=== PATIENT | female | born 1980 | race Caucasian/White ===

== ENCOUNTER 2016-09-27 12:55 | Inpatient (IN) | payer MEDICARE, MEDICAID ==
[2016-09-27 15:27] LABS: Hematocrit 35 % (35-47); Hemoglobin 11.9 g/dl (12.0-16.0); Mean Corpuscular HGB Conc 34 g/dl (31-36); Mean Corpuscular Hemoglobin 29 pg (27-31); Mean Corpuscular Volume 85 fL (80-97); Mean Platelet Volume 8 um3 (7.4-10.4); Red Blood Count 4.15 10^6/ul (4.0-5.4); Red Cell Distribution Width 15 % (10.5-15); White Blood Count 10.3 10^3/ul (3.5-10.8)
[2016-09-27 15:29] LABS: Urine Bilirubin Negative (Negative); Urine Glucose Negative (Negative); Urine Nitrite Negative (Negative)
[2016-09-27 15:41] LABS: Benzodiazepine Urine Screen None Detected (None Detect)
[2016-09-27 15:42] LABS: ALT 12 U/L (7-52); AST 15 U/L (13-39); Albumin 3.9 g/dL (3.2-5.2); Alkaline Phosphatase 58 U/L (34-104); Blood Urea Nitrogen 12 mg/dL (6-24); CO2 Carbon Dioxide 25 mmol/L (22-32); Calcium 8.2 mg/dL (8.6-10.3); Chloride 87 mmol/L (101-111); EGFR African American 105.6 (>60); EGFR Non-African American 82.1 (>60); Glucose 90 mg/dL (70-100); Potassium 3.9 mmol/L (3.5-5.0); Total Protein 6.9 g/dL (6.4-8.9)
[2016-09-27 15:43] LABS: Anion Gap 5 mmol/L (2-11); Sodium 117 mmol/L (133-145)
[2016-09-27] MEDS ORDERED: NS 0.9% 1000 ML* 1,000 ML IV SCH ×2 (16:00→18:00)
[2016-09-27 16:31] LABS: Acetaminophen < 15 mcg/mL; Alcohol < 10 mg/dL (<10); Salicylate < 2.50 mg/dL (<30)
[2016-09-27 16:40] LABS: TSH (Thyroid Stimulating Horm) 1.47 mcIU/mL (0.34-5.60)
[2016-09-27 17:08] LABS: BUN/Creatinine Ratio 17.8 (8-20); Calcium 7.8 mg/dL (8.6-10.3); EGFR African American 117.4 (>60); EGFR Non-African American 91.3 (>60); Potassium 3.9 mmol/L (3.5-5.0)
[2016-09-27] MEDS ORDERED: Zolpidem TAB* 10 MG PO PRN (17:55)
--- NOTE | 2016-09-27 18:30 | ED ---
Han Otero Billy, scribed for Segundo Chandler MD on 09/27/16 at 1345 . Psychiatric Complaint - HPI Summary HPI Summary: Patient is a 35 year-old female coming to [facility] for evaluation of depression and OD. Patient states that she took all of her daily medications at once this morning at 0830, citing vague thoughts of self-harm, stating that she "didn't realize it would affect her so much." The list of medications includes Tegretol , Wellbutrin, Neurontin, and Adderall. She feels dizzy and fatigued at this time. Patient saw her counselor 5 days ago and was told that she needed to be admitted to a [facility]. - History Of Current Complaint Chief Complaint: EDMentalHealth Time Seen by Provider: 09/27/16 13:06 Accompanied By: Hx Obtained From: Patient Onset/Duration: Gradual Onset, Lasting Hours Timing: Constant Severity Initially: Moderate Severity Currently: Moderate Character: Depressed Aggravating Factor(s): Medication Non-compliance Alleviating Factor(s): Counseling Related History: Positive For: Prior Psychiatric Issues - Allergies/Home Medications Allergies/Adverse Reactions: Allergies Allergy/AdvReac Type Severity Reaction Status Date / Time No Known Allergies Allergy Verified 09/27/16 13:57 PMH/Surg Hx/FS Hx/Imm Hx Endocrine/Hematology History: Denies: Hx Diabetes Cardiovascular History: Denies: Hx Congenital Heart Disease, Hx Congestive Heart Failure, Hx Hypertension Psychiatric History: Reports: Hx Anxiety, Hx Depression, Hx Post Traumatic Stress Disorder, Hx Schizophrenia, Hx Bipolar Disorder Infectious Disease History: Denies: Traveled Outside the [place] in Last 30 Days - Family History Known Family History: Positive: Other - Lung cancer - Social History Alcohol Use: None Hx Substance Use: Yes Substance Use Type: Reports: Marijuana Hx Tobacco Use: Yes Smoking Status (MU): Current Every Day Smoker Review of Systems Positive: Fatigue. Negative: Fever Negative: Chest Pain Negative: Shortness Of Breath Negative: Abdominal Pain Negative: dysuria, hematuria Neurological: Other - dizzy Positive: Depressed All Other Systems Reviewed And Are Negative: Yes Physical Exam Triage Information Reviewed: Yes Vital Signs On Initial Exam: Initial Vitals Temp Pulse Resp BP Pulse Ox 98 F 90 16 153/98 100 09/27/16 13:00 09/27/16 13:00 09/27/16 13:00 09/27/16 13:00 09/27/16 13:00 Vital Signs Reviewed: Yes Appearance: Positive: Well-Appearing, No Pain Distress Skin: Positive: Warm, Skin Color Reflects Adequate Perfusion, Dry Head/Face: Positive: Normal Head/Face Inspection Eyes: Positive: EOMI, GEOVANY ENT: Positive: Normal ENT inspection Neck: Positive: Supple, Nontender Respiratory/Lung Sounds: Positive: Clear to Auscultation, Breath Sounds Present Cardiovascular: Positive: RRR Abdomen Description: Positive: Nontender, Soft Musculoskeletal: Positive: Normal, Strength/ROM Intact Neurological: Positive: Normal, Sensory/Motor Intact, Alert, Oriented to Person Place, Time Psychiatric: Positive: Other - Flat affect Diagnostics - Vital Signs Vital Signs Temp Pulse Resp BP Pulse Ox 09/27/16 13:00 98 F 90 16 153/98 100 - Laboratory Lab Results: Lab Results 09/27/16 09/27/16 09/27/16 Range/Units 15:20 15:20 15:20 WBC 10.3 (3.5-10.8) 10^3/ul RBC 4.15 (4.0-5.4) 10^6/ul Hgb 11.9 L (12.0-16.0) g/dl Hct 35 (35-47) % MCV 85 (80-97) fL MCH 29 (27-31) pg MCHC 34 (31-36) g/dl RDW 15 (10.5-15) % Plt Count 250 (150-450) 10^3/ul MPV 8 (7.4-10.4) um3 Neut % (Auto) 74.0 (38-83) % Lymph % (Auto) 19.9 L (25-47) % [place] % (Auto) 5.2 (1-9) % Eos % (Auto) 0.4 (0-6) % Baso % (Auto) 0.5 (0-2) % Absolute Neuts (auto) 7.7 (1.5-7.7) 10^3/ul Absolute Lymphs (auto) 2.1 (1.0-4.8) 10^3/ul Absolute Monos (auto) 0.5 (0-0.8) 10^3/ul Absolute Eos (auto) 0 (0-0.6) 10^3/ul Absolute Basos (auto) 0 (0-0.2) 10^3/ul Absolute Nucleated RBC 0 10^3/ul Nucleated RBC % 0 Sodium 117 L* (133-145) mmol/L Potassium 3.9 (3.5-5.0) mmol/L Chloride 87 L (101-111) mmol/L Carbon Dioxide 25 (22-32) mmol/L Anion Gap 5 (2-11) mmol/L BUN 12 (6-24) mg/dL Creatinine 0.80 (0.51-0.95) mg/dL Est GFR ( Amer) 105.6 (>60) Est GFR (Non-Af Amer) 82.1 (>60) BUN/Creatinine Ratio 15.0 (8-20) Glucose 90 (70-100) mg/dL Calcium 8.2 L (8.6-10.3) mg/dL Total Bilirubin 0.30 (0.2-1.0) mg/dL AST 15 (13-39) U/L ALT 12 (7-52) U/L Alkaline Phosphatase 58 (34-104) U/L Total Protein 6.9 (6.4-8.9) g/dL Albumin 3.9 (3.2-5.2) g/dL Globulin 3.0 (2-4) g/dL Albumin/Globulin Ratio 1.3 (1-3) TSH 1.47 (0.34-5.60) mcIU/mL Beta HCG, Quant 0.95 mIU/mL Urine Color Yellow Urine Appearance Cloudy Urine pH 6.0 (5-9) Ur Specific [place] 1.023 (1.010-1.030) Urine Protein Negative (Negative) Urine Ketones Negative (Negative) Urine Blood Negative (Negative) Urine Nitrate Negative (Negative) Urine Bilirubin Negative (Negative) Urine Urobilinogen Negative (Negative) Ur Leukocyte Esterase Negative (Negative) Urine Glucose Negative (Negative) Urine Ascorbic Acid * H (Negative) Salicylates < 2.50 (<30) mg/dL Urine Opiates Screen (None Detect) Acetaminophen < 15 mcg/mL Ur Barbiturates Screen (None Detect) Ur Phencyclidine Scrn (None Detect) Ur Amphetamines Screen (None Detect) U Benzodiazepines Scrn (None Detect) Urine Cocaine Screen (None Detect) U Cannabinoids Screen (None Detect) Serum Alcohol < 10 (<10) mg/dL 09/27/16 09/27/16 Range/Units 15:20 16:20 WBC (3.5-10.8) 10^3/ul RBC (4.0-5.4) 10^6/ul Hgb (12.0-16.0) g/dl Hct (35-47) % MCV (80-97) fL MCH (27-31) pg MCHC (31-36) g/dl RDW (10.5-15) % Plt Count (150-450) 10^3/ul MPV (7.4-10.4) um3 Neut % (Auto) (38-83) % Lymph % (Auto) (25-47) % [place] % (Auto) (1-9) % Eos % (Auto) (0-6) % Baso % (Auto) (0-2) % Absolute Neuts (auto) (1.5-7.7) 10^3/ul Absolute Lymphs (auto) (1.0-4.8) 10^3/ul Absolute Monos (auto) (0-0.8) 10^3/ul Absolute Eos (auto) (0-0.6) 10^3/ul Absolute Basos (auto) (0-0.2) 10^3/ul Absolute Nucleated RBC 10^3/ul Nucleated RBC % Sodium 117 L* (133-145) mmol/L Potassium 3.9 (3.5-5.0) mmol/L Chloride 89 L (101-111) mmol/L Carbon Dioxide 23 (22-32) mmol/L Anion Gap 5 (2-11) mmol/L BUN 13 (6-24) mg/dL Creatinine 0.73 (0.51-0.95) mg/dL Est GFR ( Amer) 117.4 (>60) Est GFR (Non-Af Amer) 91.3 (>60) BUN/Creatinine Ratio 17.8 (8-20) Glucose 93 (70-100) mg/dL Calcium 7.8 L (8.6-10.3) mg/dL Total Bilirubin (0.2-1.0) mg/dL AST (13-39) U/L ALT (7-52) U/L Alkaline Phosphatase (34-104) U/L Total Protein (6.4-8.9) g/dL Albumin (3.2-5.2) g/dL Globulin (2-4) g/dL Albumin/Globulin Ratio (1-3) TSH (0.34-5.60) mcIU/mL Beta HCG, Quant mIU/mL Urine Color Urine Appearance Urine pH (5-9) Ur Specific [place] (1.010-1.030) Urine Protein (Negative) Urine Ketones (Negative) Urine Blood (Negative) Urine Nitrate (Negative) Urine Bilirubin (Negative) Urine Urobilinogen (Negative) Ur Leukocyte Esterase (Negative) Urine Glucose (Negative) Urine Ascorbic Acid (Negative) Salicylates (<30) mg/dL Urine Opiates Screen None detected (None Detect) Acetaminophen mcg/mL Ur Barbiturates Screen None detected (None Detect) Ur Phencyclidine Scrn None detected (None Detect) Ur Amphetamines Screen Presumptive positive H (None Detect) U Benzodiazepines Scrn None detected (None Detect) Urine Cocaine Screen None detected (None Detect) U Cannabinoids Screen Presumptive positive H (None Detect) Serum Alcohol (<10) mg/dL Result Diagrams: 09/27/16 15:20 09/27/16 16:20 Lab Statement: Any lab studies that have been ordered have been reviewed, and results considered in the medical decision making process. - EKG 1315 Cardiac Rate: NL - 86 bpm EKG Rhythm: Sinus Rhythm ST Segment: Normal Ectopy: None EKG Interpretation: [place] 179 and QTc 454 Course/Dx - Course Course Of Treatment: NO CRITICAL CARE TIME Assessment/Plan: ADMIT HOSPITALIST STABLE - Differential Dx/Clinical Impression Provider Diagnosis: Overdose, Hyponatremia, Mental health problem - Physician Notifications Discussed Care Of Patient With: Dr. Ferrara (hospitalist) at 1545: accepts admission. Discharge - Discharge Plan Condition: Stable Disposition: ADMITTED TO [facility] documentation as recorded by the Han francisco Billy accurately reflects the service I personally performed and the decisions made by me, Segundo Chandler MD.
[2016-09-27] MEDS: Acetaminophen TAB* 325 MG PO PRN (19:52)
[2016-09-27] MEDS: Nicotine PATCH 21 MG/24 HR* PATCH TRANSDERM SCH (19:52)
[2016-09-27] MEDS ORDERED: QUEtiapine TAB* 100 MG PO SCH (21:00)
[2016-09-27] MEDS ORDERED: Nicotine Patch Removal NOTE PATCH OFF SCH (21:00)
[2016-09-27] MEDS ORDERED: Melatonin (NF) ** ENTER STRENGTH IN LABEL DIRECTIONS PO SCH (21:00)
[2016-09-27 21:04] LABS: BUN/Creatinine Ratio 14.5 (8-20); Calcium 7.6 mg/dL (8.6-10.3); EGFR African American 101.2 (>60); EGFR Non-African American 78.7 (>60); Potassium 3.7 mmol/L (3.5-5.0)
--- NOTE | 2016-09-27 21:20 | HP ---
HISTORY AND PHYSICAL: DATE OF ADMISSION: 09/27/16 CHIEF COMPLAINT: Dizziness and vision changes. HISTORY OF PRESENT ILLNESS: Ms. Blount is a 35-year-old female with past medical history of bipolar disorder, borderline personality disorder, PTSD, schizophrenia, GERD, hypothyroidism, who presented to the hospital after she became dizzy and had some vision changes after she "took all her day medicine." The patient initially stated she was going to an auction that would last all day, so she wanted to take all of her medications in the morning, so she would not have to bring her pill box with her; however, on further interrogation, the patient states she took her Abilify, Wellbutrin, Neurontin, Tegretol in increased doses in order to get a buzz. She took an extra 200 mg of Tegretol for a total of 1000 mg. She states that she took these medications around 8 or 8:30 and about a half hour later, she began to feel dizzy, had some vision changes, and felt that her eyes were crossed. When asked to specify, she says she has not had a double vision; however, she felt like when she closed her right eye, it seemed that her left eye was seeing everything on the right side of her vision field and vice versa. She also reported some nausea, this lasted throughout the day and she became concerned, so she came to the hospital for further evaluation. The patient states she had no intention to harm herself. She has had suicide attempts in the past and has felt more depressed lately. She has seen her psychiatrist this past week and her Wellbutrin was increased from 150 mg daily to 150 mg twice daily. She states she occasionally has headache, denies any fevers, chills, chest pain, shortness of breath, abdominal pain, vomiting, has had a good p.o. intake. No diarrhea or constipation. The patient states her symptoms resolved within the last hour or so and she feels back to baseline. PAST MEDICAL HISTORY: Bipolar disorder, GERD, hypothyroidism, borderline personality disorder, PTSD, and schizophrenia. PAST SURGICAL HISTORY: Hernia repair x3, gastric bypass, left oophorectomy, and salpingectomy. HOME MEDICATIONS: 1. Omeprazole 20 mg by mouth daily. 2. Synthroid 100 mcg by mouth daily. 3. Seroquel 50 mg 3 times daily and 200 mg at night. 4. Ambien 10 mg at night as needed for insomnia. 5. Klonopin 1 mg 3 times daily as needed for anxiety. 6. Tegretol 200 mg 4 times daily. 7. Wellbutrin 150 mg by mouth 2 times daily. 8. Neurontin 600 mg by mouth 4 times daily. 9. Tizanidine 2 mg by mouth 3 times daily. 10. Vitamin B 1 tablet sublingual daily. 11. Abilify 15 mg by mouth daily. 12. Adderall 15 mg by mouth daily. ALLERGIES: The patient reports no known drug allergies. FAMILY HISTORY: Significant for father with lung cancer. SOCIAL HISTORY: The patient is a [id number] smoker for 18 years, reports occasional alcohol use, and occasional marijuana use, denies any heroin or cocaine abuse. REVIEW OF SYSTEMS: A 12-point review of systems is negative except for that noted in the HPI. PHYSICAL EXAMINATION GENERAL: The patient is a young, obese, female, lying in bed, in no apparent distress. VITAL SIGNS: On admission, temperature 98, heart rate of 90, respiratory rate 16, O2 saturation 100% on room air, and blood pressure 153/98. HEENT: Pupils are equal, round, and reactive to light and accommodation. Anicteric sclerae. Moist mucous membranes. No cervical adenopathy. LUNGS: Clear to auscultation bilaterally. No wheezes, rales, or rhonchi. CARDIOVASCULAR: Regular rate and rhythm. S1, S2 present. No murmurs, gallops , or rubs. ABDOMEN: Obese, soft, nontender, and nondistended. Bowel sounds positive. EXTREMITIES: No cyanosis, clubbing, or edema. NEURO: The patient is alert and oriented x3. No focal neurological deficits. DIAGNOSTIC STUDIES/LAB DATA: White blood cell count of 10.3, hematocrit of 35 , and platelets of 250. Sodium 117, potassium of 3.9, chloride of 87, carbon dioxide of 25, BUN of 12, creatinine of 0.80, glucose of 90, and calcium of 8.2. LFTs within normal limits. TSH of 1.47. Urinalysis negative. U-tox positive for amphetamines and cannabinoids. EKG: Shows normal sinus rhythm, no ST changes, normal QRS duration. ASSESSMENT AND PLAN: Hyponatremia in the setting of increased medication ingestion, particularly, Tegretol, Wellbutrin, and Neurontin in a 35-year-old female with multiple psychiatric problems, gastroesophageal reflux disease, hypothyroidism. 1. Hyponatremia: Etiology is unclear at this time. The patient does not look overtly hypovolemic. She is on carbamazepine, which is a frequent cause of syndrome of inappropriate secretion of antidiuretic hormone. We will check urine sodium, urine osmolality, and serum osmolality. For now, we will start the patient on gentle IV fluids and monitor her sodium every 4 hours. Her TSH is within normal limits. She does not seem to be manifesting any neurological abnormalities at this time from her low sodium. I am going to hold her Carbamazepine, Neurontin and Wellbutrin for now. 2. Medication ingestion: I do not think this was suicide attempt or an attempt to harm herself. The patient denies any suicidal ideations despite history of suicide attempts in the past. She states her , who is in the room states that they were both looking forward to the day. She was just trying to get "buzz from her medications." We will check a carbamazepine level and monitor the patient on telemetry as this can sometimes cause some QRS prolongation. We will recheck an EKG in the morning. 3. Gastroesophageal reflux disease: Continue home omeprazole. 4. Hypothyroidism: Continue home Synthroid. 5. Bipolar disorder and schizophrenia: We will continue her Abilify to begin tomorrow along with her Adderall. Continue Klonopin and Seroquel. We will hold her Wellbutrin, Neurontin, and Carbamazepine for now. 6. DVT prophylaxis: Low-risk LIEN stockings. 7. Code status: The patient is a full code. TIME SPENT: Total time spent on this admission was 50 minutes, with over half the time spent [id number] with the patient in counseling and coordinating care. [id number]/[facility] #: [id number] SHAN
[2016-09-27] MEDS: QUEtiapine TAB* 25 MG PO SCH (22:36)
[2016-09-27] MEDS: clonazePAM TAB(*) 1 MG PO PRN (22:36)
[2016-09-27] MEDS ORDERED: CMCS Melatonin (NF) 3 MG TAB PO SCH (23:00)
[2016-09-28 00:51] LABS: Calcium 7.4 mg/dL (8.6-10.3); EGFR African American 105.6 (>60); EGFR Non-African American 82.1 (>60); Potassium 3.7 mmol/L (3.5-5.0)
[2016-09-28] MEDS: Acetaminophen TAB* 325 MG PO PRN (04:12)
[2016-09-28 04:45] LABS: BUN/Creatinine Ratio 15.1 (8-20); Calcium 7.5 mg/dL (8.6-10.3); EGFR African American 117.4 (>60); EGFR Non-African American 91.3 (>60); Potassium 3.6 mmol/L (3.5-5.0)
[2016-09-28] MEDS ORDERED: Levothyroxine TAB* 100 MCG TAB PO SCH (06:00)
[2016-09-28] MEDS: Nicotine PATCH 21 MG/24 HR* PATCH TRANSDERM SCH (08:48)
[2016-09-28] MEDS: QUEtiapine TAB* 25 MG PO SCH (08:48)
[2016-09-28] MEDS ORDERED: ARIPiprazole TAB* 15 MG PO SCH (09:00)
[2016-09-28] MEDS ORDERED: Amphetamine MIXED SALTS TAB* 15 MG PO SCH (09:00)
[2016-09-28] MEDS ORDERED: Omeprazole CAP* 20 MG PO SCH (09:00)
--- NOTE | 2016-09-28 09:07 | DCNOTE ---
Called by nursing that patient requesting to leave AMA. On arrival patient states she feels fine, at her baseline and feels she could be doing the same thing at home. I explained my concern about her low sodium and that if she is not monitored in a controlled setting she could have rapid increases or decreases in her sodium that could cause issues such as confusion, seizures, coma, permanent neurological deficits and even . She states she understands the risks involved and is able to tell paraphrase the risks back to me. She has decision-making capacity. [place] paperwork was filled out and signed. is present at the bedside and offers no resistance. I encouraged her to follow-up as soon as possible with her PCP and Psychiatrist.
[2016-09-28] MEDS: clonazePAM TAB(*) 1 MG PO PRN (09:08)
[2016-09-28 09:19] VITALS: BP 97/57
[2016-09-28 09:24] LABS: BUN/Creatinine Ratio 12.3 (8-20); Calcium 7.9 mg/dL (8.6-10.3); EGFR African American 104.1 (>60); EGFR Non-African American 80.9 (>60); Potassium 3.9 mmol/L (3.5-5.0)
--- NOTE | 2016-09-29 00:50 | DS ---
DISCHARGE SUMMARY: DATE OF ADMISSION: 09/28/16 DATE OF DISCHARGE: 09/28/16 The patient left against medical advice. HISTORY OF PRESENT ILLNESS AND HOSPITAL SUMMARY: Please see my full history and physical for full details. Briefly, Ms. Blount is a 35-year-old female with complicated past psychiatric history who took increased doses of her carbamazepine, gabapentin, and bupropion early in the day to try to get "buzz." The patient developed some dizziness, nausea, and vision changes. She came to the hospital for further workup. She was found to be profoundly hyponatremic with sodium of 117. On further testing of the urine, this seemed more consistent with SIADH. The patient was placed on fluid restriction. The following morning, her sodium had increased to 119 and then subsequently 124. It was recommended the patient remain in the hospital for further monitoring; however, she decided she wanted to leave against medical advice. The patient had full capacity to make this decision and understood the risk involved. Appropriate paperwork was signed. The patient left the hospital, she was encouraged to follow-up with her outpatient providers. TIME SPENT: Total time spent on this discharge 35 minutes. This is just a summary of the hospitalization. Please see the full medical record for further details. [id number]/[facility] #: [id number] MTDD
== END 2016-09-28 10:08 | disposition left against medical advice (07) | DRG 885 ==
LOC: ED 12:55 → ICU 17:29
PROVIDERS: ADMIT Hospitalist; ATTEND Hospitalist
DX: F31.9 Bipolar disorder, unspecified (principal); Z68.41 Body mass index [BMI] 40.0-44.9, adult; F60.3 Borderline personality disorder; F43.10 Post-traumatic stress disorder, unspecified; F20.9 Schizophrenia, unspecified; K21.9 Gastro-esophageal reflux disease without esophagitis; F17.210 Nicotine dependence, cigarettes, uncomplicated; E66.01 Morbid (severe) obesity due to excess calories; E03.9 Hypothyroidism, unspecified; Z98.84 Bariatric surgery status; Z79.899 Other long term (current) drug therapy; Z80.1 Family history of malignant neoplasm of trachea, bronchus and lung
CPT/HCPCS: 36415; 80048; 80053; 80156; 80307; 80320; 80329; 81003; 83930; 83935; 84300; 84443; 84702; 85025; 87641; 93005; 99406; A9270-GY; G0480